=== PATIENT | male | born 2005 | race Two or more races ===

== ENCOUNTER 2023-12-11 17:38 | Emergency (ER) | payer OTHER ==
[~2023-12-11] VITALS: Ht 170.2 cm; Wt 68.0 kg
[2023-12-11 18:15] LABS: Basophils # (auto) 0.1 10 ^3/uL (0-0.2); Basophils % (auto) 1.3 % (0.0-2.0); Eosinophils # (auto) 0.1 10 ^3/uL (0-0.8); Eosinophils % (auto) 0.8 % (0.0-7.0); Hematocrit 44.6 % (41.0-53.0); Hemoglobin 15.4 g/dL (13.5-17.5); Lymphocytes # (auto) 1.1 10 ^3/uL (0.4-5.4); Lymphocytes % (auto) 13.2 % (10.0-50.0); Mean Corpuscular Hemoglobin 31.1 pg (28.0-32.0); Mean Corpuscular Hgb Conc. 34.5 g/dL (32.0-36.0); Mean Corpuscular Volume 90.1 fL (80.0-100.0); Monocytes # (auto) 0.5 10 ^3/uL (0-1.3); Monocytes % (auto) 6.1 % (0.0-12.0); Neutrophils # (auto) 6.3 10 ^3/uL (1.6-8.6); Neutrophils % (auto) 78.6 % (37.0-80.0); Nucleated Red Blood Cells % 0.5 %; Red Blood Cells 4.95 10^6/uL (4.5-5.90); Red Cell Distribution Width 12.8 % (11.8-14.3)
[2023-12-11 18:32] LABS: Alanine Aminotransferase 15 U/L (7-40); Alkaline Phosphatase 144 U/L (46-116); Anion Gap 8 (5-15); BUN/Creatinine Ratio 9.9 (10.0-20.0); Blood Urea Nitrogen 10 mg/dL (9-23); Calcium 9.8 mg/dL (8.5-10.1); Carbon Dioxide 26 mmol/L (20-30); Chloride 104 mmol/L (98-107); Glucose 104 mg/dL (74-106); Potassium 3.8 mmol/L (3.5-5.1); Sodium 138 mmol/L (136-145)
[2023-12-11 18:33] LABS: Albumin 4.9 g/dL (3.2-4.8); Aspartate Aminotransferase 13 U/L (13-40); Bilirubin, Total 0.8 mg/dL (0.2-1.0); Total Protein 7.5 g/dL (5.7-8.2)
[2023-12-11 21:00] VITALS: BP 149/100; PULSE 64; RESP 18; TEMP 98; O2SAT 98
[2023-12-11 21:49] LABS: Urine Bacteria None Seen /hpf (None Seen)
[2023-12-11 22:05] LABS: Urine Blood Negative /uL (Negative); Urine Clarity Clear (Clear); Urine Color Light-Yellow (Yellow); Urine Protein, UAD Negative (Negative); Urine Specific Gravity 1.011 (1.001-1.035); Urine Urobilinogen Normal (Negative); Urine WBC <1 /hpf (0 - 3); Urine pH 6.5 (5.0-9.0)
== END 2023-12-11 21:18 | disposition home or self-care (01) ==
LOC: ER 17:38
DX: R07.89 Other chest pain (principal)
CPT/HCPCS: 36415; 71045; 80053; 81001; 83880; 84484; 85025